=== PATIENT | female | born 1970 | race Caucasian/White ===

== ENCOUNTER 2018-11-13 10:00 | Outpatient (RCR) | payer BC, SELFPAY | END 2018-11-13 13:00 | disposition home or self-care (01) | LOC: PT 10:00 | PROVIDERS: Visit Provider Nurse Practitioner Family | DX: M54.5 Low back pain (principal) | CPT/HCPCS: 97010; 97014; 97033; 97110; 97163; G0283 ==

== ENCOUNTER → 2020-01-19 09:23 | Outpatient (CLI) | payer OTHER, SELFPAY ==
--- NOTE | 2020-01-19 09:26 | MM_ITS ---
PROCEDURE: MM DIG SCREENING MAMM BI W/CAD Digital Breast Tomosynthesis Included CLINICAL INDICATION: SCREENING there is no personal or family history of breast cancer. There has been a previous cyst aspiration left breast with benign findings. COMPARISON: Outside digital mammograms 10/29/2014 TECHNIQUE: Standard CC and MLO images and 3D Tomosynthesis was obtained. R2 CAD reviewed. FINDINGS: Minimal scattered fibroglandular densities are seen throughout both breasts. There is a benign-appearing calcification left breast. There is no suspicious lesion in either breast and no suspicious microcalcifications. There is a possible new benign-appearing nodular density just deep to and superior to the nipple left breast. This is best seen on hunter images and may be a small cyst or fibroadenoma. Recommend the patient return for spot compression views left breast and ultrasound may be necessary as well. IMPRESSION: Fibrofatty parenchyma with possible new density left breast BI-RAD Category: 0 Need Additional Imaging Evaluation FOLLOW-UP: IMM Immediate Follow-up Recommended (A letter has been sent to the patient regarding results of the study.) Dictated by: Dr. Carlos Eduardo Mcneal MD 01/23/2020 10:[address] Carlos Eduardo Mcneal MD in [place] 01/23/2020 10:27
== END ==
PROVIDERS: PCP Nurse Practitioner Family; Visit Provider Nurse Practitioner Family
DX: Z12.31 Encounter for screening mammogram for malignant neoplasm of breast (principal)
CPT/HCPCS: 77063; 77067

== ENCOUNTER 2020-02-07 12:56 | Emergency (ER) | payer OTHER, SELFPAY ==
--- NOTE | 2020-02-07 13:22 | HMH.EDUTC ---
[facility] [place] Clinical Impression: Cystitis Low back pain Qualifiers: Chronicity: acute Back pain laterality: left Sciatica presence: without sciatica Qualified Code(s): M54.5 - Low back pain Pharyngitis Qualifiers: Pharyngitis/tonsillitis etiology: unspecified etiology Qualified Code(s): J02.9 - Acute pharyngitis, unspecified Disposition: Home, Self-Care Condition on Discharge: Good Instructions: Acute Cystitis, DI for Low Back Pain Additional Instructions: Drink plenty of fluids. Continue the medications that you are on. Take the steroids (prednisone) and antibiotics (bactrim) that I prescribed. Follow up with your regular doctor so that she can go over your urine culture results. GO TO THE ER FOR ANY WORSENING SYMPTOMS Prescriptions: Ondansetron [Zofran 4mg ODT] 4 mg PO Q8HP PRN #10 tab.rapdis PRN Reason: Nausea Transmission Status: [facility] Sulfamethoxazole/Trimethoprim [Bactrim DS tablet] 1 each PO BID 7 Days #14 tab Transmission Status: Received by [facility] Fluconazole [Diflucan 150mg tab] 150 mg PO ONCE #1 tab Transmission Status: Received by [facility] predniSONE [Prednisone 20mg Tab] 20 mg PO BID 4 Days #8 tab Transmission Status: Received by [facility] Phenazopyridine HCl [Pyridium 200mg Tablet] 200 pow PO TID #6 tab Transmission Status: Received by [facility] Referrals: Dora Morrison [Primary Care Provider] - Time of Disposition: 13:57 Medical Decision Making - Medical Records Medical records reviewed: No: I reviewed the patient's medical records. - Arley Inquiry Pt receiving controlled substance: No Vital Signs: 02/07/20 13:26 02/07/20 14:04 Temperature 98.0 F 98.0 F Temperature Source Oral Pulse Rate 92 H Pulse Rate [Right Brachial] 92 H Respiratory Rate 20 20 Blood Pressure 118/68 Blood Pressure [Right Arm] 118/68 Blood Pressure Mean [Right Arm] 84 Blood Pressure Source [Right Arm] Automatic Cuff Blood Pressure Position [Right Arm] Sitting 02 Sat by Pulse Oximetry 98 Oxygen Delivery Method Room Air - Lab Data Lab results reviewed: Yes: I reviewed the patient's lab results. Lab Results 02/07/20 13:01: Urine Color Yellow, Urine Appearance Clear, Urine pH 5.0, Ur Specific Tyner 1.020, Urine Protein Negative, Urine Glucose (UA) Negative, Urine Ketones Negative, Urine Blood Negative, Urine Nitrate Negative, Urine Bilirubin Negative, Urine Urobilinogen 0.2, Ur Leukocyte Esterase Negative 02/07/20 13:47: Strep Scn Rapid Clinic Negative Orders (Tests/Meds): ORDERS Category Date Time Status Strep Screen Confirmation Stat Micro 02/07/20 13:47 Received [facility] [place] - General Stated complaint: possible UTI Time Seen by Provider: 02/07/20 13:28 - History of Present Illness Provider Complaint: She c/o low back pain, dysuria, and foul smelling urine. 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] 60 mg PO DAILY 02/07/20 02/07/20 Previous Rx's Medication Instructions Recorded Fluconazole [Diflucan 150mg tab] 150 mg PO ONCE #1 tab 02/07/20 Ondansetron [Zofran 4mg ODT] 4 mg PO Q8HP PRN #10 tab.rapdis 02/07/20 Phenazopyridine HCl [Pyridium 200 pow PO TID #6 tab 02/07/20 200mg Tablet] Sulfamethoxazole/Trimethoprim 1 each PO BID 7 Days #14 tab 02/07/20 [Bactrim DS tablet] predniSONE [Prednisone 20mg 20 mg PO BID 4 Days #8 tab 02/07/20 Tab] Allergies Allergy/AdvReac Type Severity Reaction Status Date / Time codeine Allergy Verified 12/01/18 11:10 hydrocodone Allergy Verified 12/01/18 11:10 promethazine [From Phenergan] Allergy Verified 12/01/18 11:10 [facility] History - Hepatitis A Screen Attestation statement:: This patient has been screened for Hepatitis A risk facto
[2020-02-07 13:26] VITALS: BP 118/68; PULSE 92; RESP 20; TEMP 36.7; O2SAT 98; BMI 33.1
[2020-02-07 13:32] LABS: Apearance,Urine Clear (Clear); Color,Urine Yellow (Yellow)
[2020-02-07 13:33] LABS: Bilirubin,Urine Negative (Negative); Blood, Urine Negative (Negative); Glucose,Urine (UA) Negative (Negative); Ketones,Urine Negative (Negative); Protein,Urine Negative (Negative); UTC Leukocyte Esterase,Urine Negative (Negative); UTC Nitrate,Urine Negative (Negative); Urobilinogen,Urine 0.2 EU/dl (0.2)
[2020-02-07 13:56] LABS: UTC Strep Screen (Rapid) Negative (Negative)
[2020-02-07 14:04] VITALS: BP 118/68; PULSE 92; RESP 20; TEMP 36.7; O2SAT 98
== END 2020-02-07 14:05 | disposition home or self-care (01) ==
PROVIDERS: Emergency Provider Nurse Practitioner Family; PCP Nurse Practitioner Family
DX: N30.00 Acute cystitis without hematuria (principal); M35.00 Sjogren syndrome, unspecified; J02.9 Acute pharyngitis, unspecified; F17.290 Nicotine dependence, other tobacco product, uncomplicated; Z90.49 Acquired absence of other specified parts of digestive tract; Z90.79 Acquired absence of other genital organ(s)
CPT/HCPCS: 81003; 87880; 99202

== ENCOUNTER → 2020-02-19 08:58 | Outpatient (CLI) | payer OTHER, SELFPAY ==
--- NOTE | 2020-02-19 09:16 | MM_ITS ---
PROCEDURE: MM DIG MAMM DX UNILAT LT CAD Digital Breast Tomosynthesis Included CLINICAL INDICATION: ABN MAMM Follow-up abnormal mammogram COMPARISON: AB MAMM SCREEN BILAT DIG PNL from 10/29/2014 MM DIG SCREENING MAMM BI W/CAD from 01/19/2020 US BREAST LT COMPLETE from 02/19/2020 TECHNIQUE: Problem solving views performed of the left breast along left breast FINDINGS: Average fibroglandular tissue. Spot compression view show minimal nodularity in the medial aspect of the left breast just medial and anterior to the clip as seen best on the CC views. This does not appear significantly changed compared to 10/29/2014 and may only represent asymmetric fibroglandular tissue. There are some faint calcifications posterior to the placed clip possibly due to fat necrosis best seen on the CC view. Probably benign findings. Left breast ultrasound: No cystic or solid lesion evident. There is a biopsy clip in the superior left breast IMPRESSION: BI-RAD Category: 3 Probably Benign Finding Short Term Follow-up FOLLOW-UP: 6M 6Month Follow-up (A letter has been sent to the patient regarding results of the study.) Dictated by: Aron Gibbs MD 02/26/2020 13:02 Electronically signed by Aron Gibbs MD in [place] 02/26/2020 13:02
== END ==
PROVIDERS: PCP Nurse Practitioner Family; Visit Provider Nurse Practitioner Family
DX: R92.2 Inconclusive mammogram (principal)
CPT/HCPCS: 76641; 77061; 77065; G0279

== ENCOUNTER 2020-08-04 11:19 | Emergency (ER) | payer MEDICAID, SELFPAY ==
[2020-08-04 11:37] VITALS: BP 110/65; PULSE 70; RESP 18; TEMP 36.7; O2SAT 100; BMI 33.3
[2020-08-04 11:58] VITALS: BP 110/65; PULSE 70; RESP 18; TEMP 36.7; O2SAT 100
--- NOTE | 2020-08-04 11:59 | HMH.EDUTC ---
[facility] [place] Clinical Impression: Exposure to COVID-19 virus, Encounter for laboratory testing for COVID-19 virus Disposition: Home, Self-Care Condition on Discharge: Good Instructions: Preventing the Spread of Coronavirus Discharge Instructions Additional Instructions: *Monitor Temp, Over the counter Motrin or Tylenol as directed/as needed Tylenol every 4 hours and Motrin every 6 hours (as long as your family doctor has told you that you can take it) for fever or pain. and straight to ER if unable to lower temp less than 101.0 after medication given *Warm salt water gargles may help to soothe the throat Eat healthy to help give your body fuel to fight the virus *Throat Lozenges *Warm fluids like tea with honey may help to soothe the throat *Sleep elevated *Humidifier/Vaporizer Follow up IMMEDIATELY for new or worsening symptoms or no Noticeable improvement over the next 48-72 hours. 911 for difficulty breathing or swallowing You was tested for today for COVID19 your test result should be back later this evening, you may call back later this evening to see if your test results are back and the result You was given a handout with instructions for Self Quarantine and Self isolation for while you wait on test results and what to do if they are positive Referrals: Isabel Jarquin APRN [Primary Care Provider] - As needed Forms: Work/School Release Time of Disposition: 12:00 Medical Decision Making - Arley Inquiry Pt receiving controlled substance: No rAley was queried for this patient: No Vital Signs: 08/04/20 11:37 08/04/20 11:58 Temperature 98.1 F 98.1 F Temperature Source Oral Oral Pulse Rate 70 Pulse Rate [Radial] 70 Respiratory Rate 18 18 Blood Pressure 110/65 Blood Pressure [Right Arm] 110/65 Blood Pressure Mean [Right Arm] 80 Blood Pressure Source Automatic Cuff Blood Pressure Source [Right Arm] Automatic Cuff Blood Pressure Position Sitting Blood Pressure Position [Right Arm] Sitting 02 Sat by Pulse Oximetry 100 Oxygen Delivery Method Room Air Room Air Orders (Tests/Meds): ORDERS Category Date Time Status Covid-19 Nasal PCR ([facility]) Routine Lab 08/04/20 11:33 Received [facility] [place] HPI - General Stated complaint: covid test Time Seen by Provider: 08/04/20 11:59 Mode of Arrival: Ambulatory Source of Information: Patient Limitations: No Limitations Description of Symptoms (Recalled from Triage Doc. by RN): COVID EXPOSURE HEENT Symptoms (Recalled from RN notes): No Resp Symptoms (Recalled from RN notes): No Skin Symptoms (Recalled from RN notes): No MS Symptoms (Recalled from RN notes): No Functional Status (Recalled from RN notes): WNL - History of Present Illness Provider Complaint: Patient states that she was recently exposed to around 8 people at [facility] that has tested positive for COVID States that she isnt having any symptoms but is taking Chemo and they recommended that she get tested 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,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] 60 mg PO DAILY 02/07/20 02/07/20 Previous Rx's Medication Instructions Recorded Fluconazole [Diflucan 150mg tab] 150 mg PO ONCE #1 tab 02/07/20 Ondansetron [Zofran 4mg ODT] 4 mg PO Q8HP PRN #10 tab.rapdis 02/07/20 Phenazopyridine HCl [Pyridium 200 pow PO TID #6 tab 02/07/20 200mg Tablet] Sulfamethoxazole/Trimethoprim 1 each PO BID 7 Days #14 tab 02/07/20 [Bactrim DS tablet] predniSONE [Prednisone 20mg 20 mg PO BID 4 Days #8 tab 02/07/20 Tab] Allergies Allergy/AdvReac Type Severity Reaction Status Date / Time codeine Allergy Verified 12/01/18 11:10 hydrocodone Allergy Verified 12/01/18 11:10 promethazine [From Phenergan] Allergy Verified 12/01/18 11:10 - Worker's Comp Is this a Worker's Comp case?: No [facility] History - Hepatitis A Screen Drug
== END 2020-08-04 12:07 | disposition home or self-care (01) ==
PROVIDERS: Emergency Provider Nurse Practitioner; PCP Nurse Practitioner Family
DX: U07.1 COVID-19 (principal); Z88.5 Allergy status to narcotic agent
CPT/HCPCS: 99201; U0003

== ENCOUNTER 2020-12-27 09:05 | Outpatient (CLI) | payer MEDICAID, SELFPAY ==
[2020-12-27 09:05] VITALS: BP 107/65; PULSE 68; RESP 20; TEMP 36.9; O2SAT 95
[2020-12-27 10:00] VITALS: BP 129/55; PULSE 61; RESP 20; TEMP 36.9; O2SAT 95
== END 2020-12-27 10:00 | disposition home or self-care (01) ==
LOC: INF 09:05
DX: D50.9 Iron deficiency anemia, unspecified (principal)
CPT/HCPCS: 96365; J1439

== ENCOUNTER 2021-01-03 09:32 | Outpatient (CLI) | payer MEDICAID, SELFPAY ==
[2021-01-03 09:55] VITALS: BP 100/59; PULSE 55; RESP 20; TEMP 36.9; O2SAT 95
[2021-01-03 11:10] VITALS: BP 102/52; PULSE 58; RESP 20; TEMP 36.9; O2SAT 95
== END 2021-01-03 11:10 | disposition home or self-care (01) ==
LOC: INF 09:32
DX: D50.9 Iron deficiency anemia, unspecified (principal)
CPT/HCPCS: 96365; J1439

== ENCOUNTER 2021-07-14 08:19 | Outpatient (CLI) | payer MEDICAID, SELFPAY ==
[2021-07-14] VITALS (8 sets, daily range): BP systolic 113–131; BP diastolic 65–92; PULSE 52–64; RESP 16; TEMP 36.5–36.9; O2SAT 97–100
== END 2021-07-14 11:10 | disposition home or self-care (01) ==
PROVIDERS: PCP Nurse Practitioner Family; Visit Provider Nurse Practitioner Family
DX: U07.1 COVID-19 (principal)
CPT/HCPCS: 96365

== ENCOUNTER → 2021-07-24 08:03 | Outpatient (CLI) | payer MEDICAID, SELFPAY ==
--- NOTE | 2021-07-24 08:07 | MR_ITS ---
PROCEDURE: MR LUMBAR SPINE WO CON CLINICAL INDICATION: LOW BACK PAIN COMPARISON: No exams were available for comparison TECHNIQUE: Standard multiplanar multiecho sequences are performed without contrast. 3-D MIP and myelographic images are also rendered and reviewed FINDINGS: The spinal cord ends at the L1-L2 level. T11-T12: Mild degenerative disc disease with anterior bulging disc. 8 mm T2 hyperintensity within the T12 vertebral body suggesting a small hemangioma T12-L1: Unremarkable. L1-L2: Unremarkable. L2-L3: Unremarkable. L3-L4: Mild facet and ligamentum hypertrophic change. L4-5: Severe degenerative disc disease with 7 mm anterolisthesis of L4 with bulging disc along with facet and ligamentum hypertrophy. The bulging disc is eccentric toward the left. There is canal stenosis of 10 mm with severe bilateral foraminal narrowing left greater than right and bilateral lateral recess narrowing left greater than right. There are type 1 endplate changes at L4-5. L5-S1: Facet hypertrophic changes with mild bilateral foraminal narrowing slightly greater on the left with a small annular fissure in the left lateral aspect of the disc. IMPRESSION: Multilevel lumbar spondylosis. Please see above for detailed description at each level. This is most severe at L4-5. No extruded herniated disc evident. Dictated by: Aron Gibbs MD 07/26/2021 09:26 Aron Gibbs MD in [place] 07/26/2021 09:26
--- NOTE | 2021-07-24 08:13 | XR_ITS ---
PROCEDURE: XR ORBIT BILATERAL MIN 4V CLINICAL INDICATION: RULE OUT METAL FOREIGN BODY FOR MRI COMPARISON: No exams were available for comparison TECHNIQUE: AP views are obtained of the orbits with the patient looking up and down. FINDINGS: No radio opaque foreign bodies evident. IMPRESSION: No radio opaque orbital foreign body identified. Dictated by: Aron Gibbs MD 07/24/2021 08:47 Aron Gibbs MD in [place] 07/24/2021 08:47
== END ==
PROVIDERS: PCP Nurse Practitioner Family; Visit Provider Nurse Practitioner Family
DX: H05.53 Retained (old) foreign body following penetrating wound of bilateral orbits (principal); M54.50 Low back pain, unspecified
CPT/HCPCS: 70200; 72148; 76376

== ENCOUNTER → 2021-12-21 09:08 | Outpatient (CLI) | payer MEDICAID, SELFPAY ==
[2021-12-21 14:04] LABS: Basophils # 0.1 K/mm3 (0-0.2); Basophils % 1.1 % (0.1-2.0); Eosinophils % 1.1 % (0.1-12.0); Hematocrit 41.4 % (37.0-47.0); Hemoglobin 13.1 g/dL (12.2-16.2); Lymphocytes # 1.3 K/mm3 (0.7-4.5); Lymphocytes % 31.6 % (10-50); Mean Corpuscular HGB Conc 31.7 g/dL (31.8-35.4); Mean Corpuscular Hemoglobin 31.2 pg (27.0-31.2); Mean Corpuscular Volume 98.3 fl (81-99); Mean Platelet Volume 9.7 fl (7.4-10.4); Monocytes # 0.3 K/mm3 (0.1-1.0); Monocytes % 8.2 % (1.7-9.3); Neutrophils # 2.4 K/mm3 (1.8-7.8); Neutrophils % 57.9 % (37.0-80.0); Platelet Count 214 K/mm3 (142-424); Red Blood Count 4.21 M/mm3 (4.20-5.40); Red Cell Distribution Width 13.5 % (11.5-17.5); White Blood Count 4.1 K/mm3 (4.8-10.8)
[2021-12-21 14:07] LABS: Alanine Aminotransferase 19 U/L (12-78); Albumin Level 3.8 g/dl (3.5-5.0); Albumin/Globulin Ratio 1.7 (1.1-1.8); Alkaline Phosphatase 77 U/L (38-126); Aspartate Amino Transferase 29 U/L (14-36); Bilirubin,Total 0.7 mg/dl (0.2-1.3); Blood Urea Nitrogen 14 mg/dl (7-17); Calcium 8.7 mg/dl (8.4-10.2); Carbon Dioxide 31 mmol/L (22.0-30.0); Chloride 104 mmol/L (98-107); Estimated Glomerular Filt Rate 88 ml/min (>60); GFR (African American) 106 ML/MIN (>60); Globulin 2.2 g/dL (1.3-3.2); Glucose 88 mg/dl (74-100); Sodium 138 mmol/L (136-145)
[2021-12-21 15:26] LABS: Erythrocyte Sedimentation Rate 13 mm/hr (0-30)
== END ==
PROVIDERS: Visit Provider Nurse Practitioner
DX: Z79.899 Other long term (current) drug therapy (principal)
CPT/HCPCS: 36415; 80053; 85025; 85651

== ENCOUNTER 2021-12-25 09:00 | Outpatient (RCR) | payer MEDICAID, SELFPAY | END 2022-02-07 10:14 | disposition home or self-care (01) | LOC: PT.CARL 09:00 | PROVIDERS: PCP Nurse Practitioner Family; Visit Provider Nurse Practitioner Family | DX: M48.07 Spinal stenosis, lumbosacral region (principal) | CPT/HCPCS: 97010; 97014; 97110; 97140; 97163; G0283 ==

== ENCOUNTER 2022-03-10 09:54 | Emergency (ER) | payer MEDICAID, SELFPAY ==
[2022-03-10 10:00] VITALS: BP 124/64; PULSE 61; RESP 18; TEMP 37.1; O2SAT 98; BMI 31.4
[2022-03-10 10:28] LABS: Strep Scrn Group A (Rapid) Negative (Negative)
--- NOTE | 2022-03-10 10:29 | HMH.EDUTC ---
[facility] Disposition Clinical Impression: Upper respiratory infection Qualifiers: URI type: unspecified viral URI Qualified Code(s): J06.9 - Acute upper respiratory infection, unspecified Disposition: Home, Self-Care Condition on Discharge: Good Instructions: DI for Viral Upper Respiratory Infection -- Adult Prescriptions: Brompheniramine/Pseudoephed/Dm [Bromfed DM Cough Syrup 5mL] 5 ml PO Q4HP PRN 10 Days #180 ml PRN Reason: Cough Transmission Status: Pending to [facility] predniSONE [Prednisone 20mg Tab] 20 mg PO BID 5 Days #10 tab Transmission Status: Pending to [facility] Referrals: Dora Morrison [Primary Care Provider] - Time of Disposition: 10:41 Medical Decision Making - Arley Inquiry Pt receiving controlled substance: No Vital Signs: 03/10/22 10:00 Temperature 98.7 F Temperature Source Oral Pulse Rate [Right Brachial] 61 Respiratory Rate 18 Blood Pressure [Right Arm] 124/64 Blood Pressure Mean [Right Arm] 84 Blood Pressure Source [Right Arm] Automatic Cuff Blood Pressure Position [Right Arm] Sitting 02 Sat by Pulse Oximetry 98 Oxygen Delivery Method Room Air - Lab Data Lab results reviewed: Yes: I reviewed the patient's lab results. Lab Results 03/10/22 10:07: Group A Strep Rapid Negative Orders (Tests/Meds): ORDERS Category Date Time Status Strep Screen Confirmation Stat Micro 03/10/22 10:07 Received [facility] HPI - General Stated complaint: sinus congestion, bodyaches, CARMONA, cough, nausea Time Seen by Provider: 03/10/22 10:31 Mode of Arrival: Ambulatory Source of Information: Patient Limitations: No Limitations Description of Symptoms (Recalled from Triage Doc. by RN): PATIENT C/O HOARSENESS, CONGESTION, AND SCRATCHY THROAT X 2 DAYS. HER GRANDSON RECENTLY DIAGNOSED WITH STREP HEENT Symptoms (Recalled from RN notes): Yes Resp Symptoms (Recalled from RN notes): No Skin Symptoms (Recalled from RN notes): No MS Symptoms (Recalled from RN notes): No Functional Status (Recalled from RN notes): WNL - History of Present Illness Provider Complaint: Hoarseness, congestion, cough X 2-3 days. Cough is productive. No fever. Losing voice. Grandson has strep throat. Onset (ago): day(s) (3) Location: chest Relieving factors: none Exacerbating factors: none Associated symptoms: cough Treatments prior to arrival: none - Related Data Home Medications Medication Instructions Recorded Confirmed Hydroxychloroquine Sulfate 200 mg PO DAILY 02/07/20 03/10/22 [Plaquenil 200mg tablet] Fluticasone Propionate [Flonase 2 spr NS DAILY 03/10/22 03/10/22 50mcg nasal spray 16gm] Pregabalin [Lyrica 100mg Cap] 100 mg PO DAILY 03/10/22 03/10/22 Previous Rx's Medication Instructions Recorded Brompheniramine/Pseudoephed/Dm 5 ml PO Q4HP PRN 10 Days #180 ml 03/10/22 [Bromfed DM Cough Syrup 5mL] predniSONE [Prednisone 20mg 20 mg PO BID 5 Days #10 tab 03/10/22 Tab] Allergies Allergy/AdvReac Type Severity Reaction Status Date / Time codeine Allergy Verified 12/01/18 11:10 hydrocodone Allergy Verified 12/01/18 11:10 promethazine [From Phenergan] Allergy Verified 12/01/18 11:10 Sulfa (Sulfonamide Allergy Verified 03/10/22 10:12 Antibiotics) sulfate ion Allergy Verified 03/10/22 10:12 - Worker's Comp Is this a Worker's Comp case?: No [facility] History - Hepatitis A Screen Attestation statement:: This patient has been screened for Hepatitis A risk factors. I have reviewed the patient's past medical history: Yes - Social History Smoking Status: Current some day smoker Tobacco Type: e-cigarettes Alcohol Intake: never Occupational Status: employed Housing: house Household Members: spouse ROS Obtained: Yes All systems reviewed & no additional complaints - Constitutional Constitutional: Reports fatigue, Reports headache(s) - ENT Ears, Nose, Mouth, and Throat: Reports nasal discharge, Reports sinus pain, Reports sore throat
[2022-03-10 10:45] VITALS: BP 124/64; PULSE 61; RESP 18; TEMP 37.1; O2SAT 98
== END 2022-03-10 10:48 | disposition home or self-care (01) ==
PROVIDERS: Emergency Provider Physician Assistant; PCP Nurse Practitioner Family
DX: J06.9 Acute upper respiratory infection, unspecified (principal); F17.290 Nicotine dependence, other tobacco product, uncomplicated
CPT/HCPCS: 87430; 99212; G0463

== ENCOUNTER → 2022-08-28 14:18 | Outpatient (POV) | payer MEDICAID, SELFPAY | PROVIDERS: Visit Provider Dermatology | DX: Z00.00 Encounter for general adult medical examination without abnormal findings (principal) ==

== ENCOUNTER → 2022-11-02 10:53 | Outpatient (CLI) | payer OTHER, MEDICAID, SELFPAY ==
[2022-11-02 11:34] LABS: Basophils # 0.1 K/mm3 (0-0.2); Basophils % 2.1 % (0.1-2.0); Eosinophils # 0.1 K/mm3 (0.0-0.4); Eosinophils % 1.8 % (0.1-12.0); Hematocrit 43.3 % (37.0-47.0); Hemoglobin 14.5 g/dL (12.2-16.2); Lymphocytes # 1.5 K/mm3 (0.7-4.5); Lymphocytes % 29.6 % (10-50); Mean Corpuscular HGB Conc 33.5 g/dL (31.8-35.4); Mean Corpuscular Hemoglobin 32.5 pg (27.0-31.2); Mean Corpuscular Volume 97.2 fl (81-99); Mean Platelet Volume 8.7 fl (7.4-10.4); Monocytes # 0.4 K/mm3 (0.1-1.0); Monocytes % 8.1 % (1.7-9.3); Neutrophils # 2.9 K/mm3 (1.8-7.8); Neutrophils % 58.4 % (37.0-80.0); Platelet Count 245 K/mm3 (142-424); Red Blood Count 4.45 M/mm3 (4.20-5.40)
[2022-11-02 12:05] LABS: Iron 119 ug/dL (37-170)
[2022-11-02 12:14] LABS: Total Iron Binding Capacity 379 ug/dL (265-497)
[2022-11-02 12:37] LABS: Thyroid Stimulating Hormone 1.48 uIU/mL (0.465-4.68)
[2022-11-02 12:41] LABS: Ferritin 84.6 ng/ml (11.1-264)
[2022-11-02 13:16] LABS: Vitamin B12 245 pg/mL (239-931)
[2022-11-02 13:27] LABS: Folate 7.19 ng/mL
== END ==
PROVIDERS: PCP Nurse Practitioner Family; Visit Provider Obstetrics & Gynecology
DX: R53.83 Other fatigue (principal)
CPT/HCPCS: 36415; 82607; 82728; 82746; 83540; 83550; 84443; 85025

== ENCOUNTER 2023-06-09 11:21 | Emergency (ER) | payer OTHER, SELFPAY ==
[2023-06-09 11:22] VITALS: BP 148/83; PULSE 60; RESP 18; TEMP 36.8; O2SAT 100; BMI 32.5
--- NOTE | 2023-06-09 11:39 | EXP.UTC ---
Discharge Plan Disposition Patient Disposition: Home, Self-Care Condition: Good Prescriptions Prescriptions: New clindamycin HCl 300 mg capsule 300 mg PO Q8H Qty: 30 0RF No Action mecobalamin (vitamin B12) 1,000 mcg tablet,chewable 1,000 mcg PO DAILY pregabalin [Lyrica] 75 mg capsule 75 mg PO HS hydroxychloroquine 200 MG tablet 200 mg PO DAILY Referrals Follow up/Referrals: Dora Morrison [Primary Care Provider] - See instructions Activity Restrictions/Add. Instructions Additional Instructions/Restrictions: Take tylenol or ibuprofen for pain or fever. Take the medications as directed. Follow up with your regular doctor. GO TO THE ER FOR ANY WORSENING SYMPTOMS Clinical Impressions Clinical Impression: Cellulitis of left leg, Left leg pain, Left leg swelling Instructions Patient Instructions: Cellulitis, Clindamycin Discharge ED Provider: Grant Mancuso [facility] General Stated complaint: Heat in Left leg Time Seen by Provider: 06/09/23 11:39 History of Present Illness Provider Complaint: She states that for the past 2 days she has had left lower leg swelling, redness or her calf area, and pain in the front of her calf. She denies any injury. She denies any chest pain or shortness of breath. She denies any personal or family history of blood clots. Related Data Home Medications Medication Instructions Recorded Confirmed hydroxychloroquine 200 mg tablet 200 mg PO DAILY Arthritis 02/07/20 12/07/22 pregabalin 75 mg capsule (Lyrica) 75 mg PO HS 11/02/22 12/07/22 mecobalamin (vitamin B12) 1,000 1,000 mcg PO DAILY 12/07/22 12/07/22 mcg chewable tablet Previous Rx's Medication Instructions Recorded clindamycin HCl 300 mg capsule 300 mg PO Q8H #30 caps 06/09/23 Allergies Allergy/AdvReac Type Severity Reaction Status Date / Time codeine Allergy Verified 12/07/22 10:57 hydrocodone Allergy Verified 12/07/22 10:57 promethazine [From Phenergan] Allergy Verified 12/07/22 10:57 Sulfa (Sulfonamide Allergy Verified 12/07/22 10:57 Antibiotics) sulfate ion Allergy Verified 12/07/22 10:57 [facility] Disclaimer: The information contained in this section may have been updated after the patient was seen, as this information can be updated by other users. 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 Anemia Anxiety Depression Fatigue Hx of non anemic vitamin B12 deficiency Loss of energy Mood changes Surgical History History of neck surgery History of total abdominal hysterectomy Social History Smoking Status: Current some day smoker tobacco type: e-cigarettes alcohol intake: never current occupational status: employed Travel in the last 8 weeks: None household members: spouse housing: house current occupational exposures/hazards: Yes ROS Obtained: Yes All systems reviewed & no additional complaints except as documented Constitutional Constitutional: Denies chills and Denies fever(s) Eyes Eyes: Denies eye discharge ENT Ears, Nose, Mouth, and Throat: Denies dizziness, Denies otalgia and Denies sore throat Cardiovascular Cardiovascular: Denies chest pain Respiratory Respiratory: Denies shortness of breath, Denies chest congestion, Denies cough, Denies stridor and Denies wheezing Gastrointestinal Gastrointestingal: Denies nausea or vomiting Musculoskeletal Musculoskeletal: Reports as per HPI Integumentary/Breasts Skin/Breast: Reports as per HPI Neurologic Neurologic: Denies dizziness and Denies paresthesias Allergic/Immunologic Allergic/Immunologic: Denies wheezing Physical Exam General General appearance: alert and in no apparent distress Head Head exam: atraumatic, normocephalic and normal inspection Eye Eye exam: Present normal appearance, PERRL and EOMI ENT ENT exam: Present normal exam, n
--- NOTE | 2023-06-09 11:53 | CA_ITS ---
FINAL REPORT TECHNIQUE: Ultrasound images of the deep venous system were obtained from the left groin to the calf veins. CLINICAL HISTORY: left lower leg swelling, pain, redness, and warmth,nki COMPARISON: None FINDINGS: The deep venous system is normally compressible. Normal flow is identified. IMPRESSION: No evidence of left lower extremity DVT. Reviewed, Interpreted and Dictated by Francois Forrest MD Transcribed by Ailyn López Authenticated and [facility]
[2023-06-09 13:27] VITALS: BP 148/83; PULSE 60; RESP 18; TEMP 36.8; O2SAT 100
== END 2023-06-09 13:28 | disposition home or self-care (01) ==
PROVIDERS: Emergency Provider Nurse Practitioner Family; PCP Nurse Practitioner Family
DX: L03.116 Cellulitis of left lower limb (principal); M79.605 Pain in left leg; R22.42 Localized swelling, mass and lump, left lower limb; F17.290 Nicotine dependence, other tobacco product, uncomplicated; F41.9 Anxiety disorder, unspecified; F32.A Depression, unspecified
CPT/HCPCS: 93971; 99212; 99214; G0463

== ENCOUNTER → 2023-07-09 23:47 | Outpatient (CLI) | payer OTHER, SELFPAY | LOC: LAB.DROPOF 23:47 | PROVIDERS: PCP Nurse Practitioner Family; Visit Provider Nurse Practitioner Family | DX: R39.9 Unspecified symptoms and signs involving the genitourinary system (principal); B96.89 Other specified bacterial agents as the cause of diseases classified elsewhere | CPT/HCPCS: 87086; 87088; 87186 ==

== ENCOUNTER 2024-04-25 15:39 | Emergency (ER) | payer OTHER, SELFPAY ==
[2024-04-25 16:00] VITALS: BP 115/59; PULSE 60; RESP 19; TEMP 36.9; O2SAT 97; BMI 28.0
--- NOTE | 2024-04-25 16:45 | ED_ITS ---
Discharge Plan Disposition Patient Disposition: Still a Patient Prescriptions Prescriptions: No Action cyclobenzaprine 10 mg tablet 10 mg PO DAILY prednisone 20 mg tablet 20 mg PO DAILY pregabalin 75 mg capsule 75 mg PO DAILY Referrals Follow up/Referrals: Dora Morrison [Primary Care Provider] - See instructions [facility] [facility] [place] General Stated complaint: low back, abd pain Mode of Arrival: Ambulatory Source of Information: Patient Limitations: No Limitations Time Seen by Provider: 04/25/24 16:45 Description of Symptoms (Recalled from Triage Doc. by RN): PATIENT C/O RIGHT LOWER BACK AND RLQ PAIN, CHILLS AND NAUSEA THAT STARTED YESTERDAY. HEENT Symptoms (Recalled from RN notes): No Resp Symptoms (Recalled from RN notes): No Skin Symptoms (Recalled from RN notes): No MS Symptoms (Recalled from RN notes): No Functional Status (Recalled from RN notes): WNL History of Present Illness Provider Complaint: 53 yr old female presents for c/o low back, rt lower abd pain. was seen by pcp yesterday and told she did not have uti. pt states she thinks its her appendix and wants it checked out. Related Data Home Medications Medication Instructions Recorded Confirmed cyclobenzaprine 10 mg tablet 10 mg PO DAILY 04/25/24 04/25/24 prednisone 20 mg tablet 20 mg PO DAILY 04/25/24 04/25/24 pregabalin 75 mg capsule 75 mg PO DAILY 04/25/24 04/25/24 Allergies Allergy/AdvReac Type Severity Reaction Status Date / Time codeine Allergy Verified 07/19/23 08:33 hydrocodone Allergy Verified 07/19/23 08:33 promethazine [From Phenergan] Allergy Verified 07/19/23 08:33 Sulfa (Sulfonamide Allergy Verified 07/19/23 08:33 Antibiotics) sulfate ion Allergy Verified 07/19/23 08:33 Worker's Comp Is this a Worker's Comp case?: No [facility] Disclaimer: The information contained in this section may have been updated after the patient was seen, as this information can be updated by other users. 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) Smoking Status: Current some day smoker tobacco type: e-cigarettes alcohol intake: never current occupational status: employed Travel in the last 8 weeks: None household members: spouse housing: house current occupational exposures/hazards: Yes ROS Obtained: Yes All systems reviewed & no additional complaints except as documented Constitutional Constitutional: Reports system reviewed and no additional complaints, except as documented Eyes Eyes: Reports system reviewed and no additional complaints, except as documented ENT Ears, Nose, Mouth, and Throat: Reports system reviewed and no additional complaints, except as documented Cardiovascular Cardiovascular: Reports system reviewed and no additional complaints, except as documented Respiratory Respiratory: Reports system reviewed and no additional complaints, except as documented Gastrointestinal Gastrointestingal: Reports system reviewed and no additional complaints, except as documented, as per HPI, abdominal pain and nausea Genitourinary Female Genitourinary: Reports system reviewed and no additional complaints, except as documented and Reports as per HPI Musculoskeletal Musculoskeletal: Reports system reviewed and no additional complaints, except as documented Integumentary/Breasts Skin/Breast: Reports system reviewed and no additional complaints, except as documented Neurologic Neurologic: Reports system reviewed and no additional complaints, except as documented Endocrine Endocrine: Reports system reviewed and no additional complaints, except as documented Hematologic/Lymphatic Henatologic/Lymphatic: Reports system reviewed and no additional complaints, except as documented Allergic/Immunologic Allergic/Immunologic: Reports system reviewed and no additional complaints, except as documented Physical Exam General General appearance: alert and in no apparent distress Eye Eye exam: Present normal appearance Respiratory Respiratory exam: Present normal lung sounds bilaterally Cardiovascular Cardiovascular exam: Present regular rate and normal rhythm Abdominal Exam Abdominal exam: Present soft, tenderness, rebound and normal bowel sounds Abdominal tenderness: Present RLQ and moderate Neurological Exam Neurological exam: Present alert and oriented X3 Skin Skin exam: Present warm and intact Medical Decision Making Medical Records Medical records reviewed: Yes I reviewed the patient's medical records. Arley Inquiry Pt receiving controlled substance: No Arley was queried for this patient: No Vital Signs: 04/25/24 16:00 Temperature 98.4 F Temperature Source Oral Pulse Rate [Left Brachial] 60 Respiratory Rate 19 Blood Pressure [Left Arm] 115/59 L Blood Pressure Mean [Left Arm] 77 Blood Pressure Source [Left Arm] Automatic Cuff Blood Pressure Position [Left Arm] Sitting 02 Sat by Pulse Oximetry 97 Oxygen Delivery Method Room Air Lab Data Lab results reviewed: Yes I reviewed the patient's lab results.
--- NOTE | 2024-04-25 16:51 | PC.NURSE ---
PATIENT SENT TO ER PER Anna DOWNEY APRN. REPORT GIVEN TO DR. MENDEZ BY Anna DOWNEY APRN. PATIENT AMBULATED TO ER WITH [facility] STAFF, REFUSED WHEELCHAIR TRANSPORT
[2024-04-25 16:54] VITALS: BP 140/82; PULSE 68; RESP 16; TEMP 36.6; O2SAT 98; BMI 27.9
--- NOTE | 2024-04-25 16:55 | PC.NURSE ---
DR MENDEZ AT BEDSIDE
[2024-04-25 17:01] VITALS: BP 124/76
--- NOTE | 2024-04-25 17:02 | CT_ITS ---
PROCEDURE INFORMATION: Exam: CT Abdomen And Pelvis With Contrast Exam date and time: 04/25/2024 5:27 PM Age: 53 years old Clinical indication: Abdominal pain; Additional info: Rlq abd pain/nausea TECHNIQUE: Imaging protocol: Computed tomography of the abdomen and pelvis with contrast. Radiation optimization: All CT scans at this facility use at least one of these dose optimization techniques: automated exposure control; mA and/or kV adjustment per patient size (includes targeted exams where dose is matched to clinical indication); or iterative reconstruction. Contrast material: ISOVUE; Contrast volume: 75 ml; Contrast route: IV; COMPARISON: MR LUMBAR SPINE WO CON 07/24/2021 8:51 AM FINDINGS: Liver: Normal. No mass. Gallbladder and biliary ducts: Gallbladder is surgically absent. No significant biliary ductal dilation. Pancreas: Normal. No ductal dilation. Spleen: Normal. No splenomegaly. Adrenal glands: Normal. No mass. Kidneys and ureters: Normal. No hydronephrosis. Stomach and bowel: Evidence of prior gastric surgery noted. No bowel wall thickening or evidence of bowel obstruction. Appendix: The appendix is visualized and appears normal. Intraperitoneal space: Unremarkable. No free air. No significant fluid collection. Vasculature: Unremarkable. No abdominal aortic aneurysm. Lymph nodes: Unremarkable. No enlarged lymph nodes. Urinary bladder: Unremarkable as visualized. Reproductive: Uterus is surgically absent. No adnexal abnormality. Bones/joints: Grade 1 anterolisthesis of L4 with severe degenerative disc changes at the L4-L5 disc level. Mild facet arthropathy at L4-L5. Moderate degenerative disc changes in the lower thoracic spine. No vertebral body compression or acute fracture. Soft tissues: Unremarkable. IMPRESSION: No acute abnormality evident. Chronic findings as noted.
--- NOTE | 2024-04-25 17:03 | HMH.EDGENADL ---
Discharge Plan Disposition Patient Disposition: Home, Self-Care Condition: Good Prescriptions Prescriptions: New nitrofurantoin monohyd/m-cryst [Macrobid] 100 mg capsule 100 mg PO BID 5 Days Qty: 10 0RF Rx Instructions: must administer with a meal/food ondansetron 4 mg tablet,disintegrating 4 mg PO Q8H PRN (Reason: nausea and vomiting) 4 Days Qty: 12 0RF phenazopyridine [Pyridium] 200 mg tablet 200 mg PO Q8H PRN (Reason: pain) Qty: 6 0RF No Action cyclobenzaprine 10 mg tablet 10 mg PO DAILY prednisone 20 mg tablet 20 mg PO DAILY pregabalin 75 mg capsule 75 mg PO DAILY Referrals Follow up/Referrals: Dora Morrison [Primary Care Provider] - See instructions Activity Restrictions/Add. Instructions Additional Instructions/Restrictions: You were evaluated in the emergency department today. At this time, your urinalysis is borderline for infection. CT scan and labs are otherwise reassuring. Please picker operator your prescription for antibiotic at the pharmacy and take as prescribed. 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 Follow-up closely with your primary care provider. Return to the emergency department for new or worsening symptoms, such as significant worsening in pain, inability to tolerate oral intake, or other concerns. Clinical Impressions Clinical Impression: Abdominal pain, UTI (urinary tract infection) Stand Alone Forms Stand Alone Forms: Work/School Release Instructions Patient Instructions: DI for Urinary Tract Infection (UTI), DI for Acute Abdominal Pain Discharge ED Provider: Shireen Murphy General Adult HPI General Chief complaint: Abdominal Pain Stated complaint: low back, abd pain Time Seen by Provider: 04/25/24 16:45 Mode of Arrival: Ambulatory Source of Information: Patient Limitations: No Limitations Description of Symptoms (Recalled from ER Triage Doc. by RN): PATIENT C/O RIGHT LOWER BACK AND RLQ PAIN, CHILLS AND NAUSEA THAT STARTED YESTERDAY. Sent from [facility] per patient request stating she just wants to be checked for appendicitis. History of Present Illness HPI narrative: This patient is a 53-year-old female with a history of prior total abdominal hysterectomy, cholecystectomy, and depression/anxiety presenting to the emergency department for evaluation with concern for right lower quadrant abdominal pain, chills, and nausea. Patient reports that she been having some mild right lower quadrant pain from a few days, but got acutely worse yesterday. She is also had some dysuria for 1 day. She saw her doctor yesterday and had labs drawn which were reassuring. Given that the pain continued into today and she has not been able to eat or drink very much with significant nausea, she presented to [facility] for evaluation. At [facility], she had a urinalysis that was reportedly concerning for leukocyte esterase per the provider after interactive discussion. Patient requested to be seen over here with concern that she could have appendicitis. No other concerns noted at this time. Patient reports no significant changes in bowel movements. Related Data Home Medications Medication Instructions Recorded Confirmed cyclobenzaprine 10 mg tablet 10 mg PO DAILY 04/25/24 04/25/24 prednisone 20 mg tablet 20 mg PO DAILY 04/25/24 04/25/24 pregabalin 75 mg capsule 75 mg PO DAILY 04/25/24 04/25/24 Previous Rx's Medication Instructions Recorded nitrofurantoin 100 mg PO BID 5 days #10 caps 04/25/24 monohydrate/macrocrystals 100 mg capsule (Macrobid) ondansetron 4 mg disintegrating 4 mg PO Q8H PRN nausea and 04/25/24 tablet vomiting 4 days #12 tabs phenazopyridine 200 mg tablet 200 mg PO Q8H PRN pain 6 doses #6 04/25/24 (Pyridium) tabs Allergies Allergy/AdvReac Type Severity Reaction Status Date / Time codeine Allergy Verified 07/19/23 08:33 hydrocodone Allergy Verified 07/19/23 08:33 promethazine [From Phenergan] Allergy Verified 07/19/23 08:33 Sulfa (Sulfonamide Allergy Verified 07/19/23 08:33 Antibiotics) sulfate ion Allergy Verified 07/19/23 08:33 [facility] Disclaimer: The information contained in this section may have been updated after the patient was seen, as this information can be updated by other users. 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 Urinary tract infection symptoms Hx of non anemic vitamin B12 deficiency Mood changes Loss of energy Fatigue Depression Anemia Anxiety Surgical History History of total abdominal hysterectomy History of neck surgery Social History Smoking Status: Unknown if ever smoked alcohol intake: never current occupational status: employed Travel in the last 8 weeks: None household members: spouse housing: house current occupational exposures/hazards: Yes ROS Obtained: Yes All systems reviewed & no additional complaints except as documented Physical Exam General General appearance: alert and in no apparent distress Head Head exam: atraumatic and normocephalic Eye Eye exam: Present normal appearance, PERRL and EOMI ENT ENT exam: Present normal exam, normal oropharynx, mucous membranes moist and normal external ear exam Neck Neck exam: Present normal inspection, full ROM and trachea midline; Absent tenderness Chest Chest inspection: Present normal inspection and symmetric chest wall rise; Absent tenderness Respiratory Respiratory exam: Present normal lung sounds bilaterally; Absent respiratory distress, wheezes, stridor or accessory muscle use Cardiovascular Cardiovascular exam: Present regular rate and normal rhythm Abdominal Exam Abdominal exam: Present soft and tenderness (Right lower quadrant); Absent distention or guarding Extremities Exam Extremities exam: Present normal inspection, full ROM and normal capillary refill; Absent tenderness or edema Back Exam Back exam: Present normal inspection and full ROM; Absent tenderness Neurological Exam Neurological exam: Present alert, oriented X3, CN II-XII intact and normal gait; Absent motor sensory deficit Psychiatric Psychiatric exam: Present normal affect and normal mood Skin Skin exam: Present warm and dry Medical Decision Making Medical Records Medical records reviewed: Yes I reviewed the patient's medical records. Arley Inquiry Pt receiving controlled substance: No Vital Signs: 04/25/24 16:00 04/25/24 16:54 04/25/24 17:01 Temperature 98.4 F 97.8 F Temperature Source Oral Oral Pulse Rate Pulse Rate [Left Brachial] 60 68 Respiratory Rate 19 16 Blood Pressure 124/76 Blood Pressure [Left Arm] 115/59 L 140/82 Blood Pressure Mean 92 Blood Pressure Mean [Left Arm] 77 101 Blood Pressure Source Blood Pressure Source [Left Arm] Automatic Cuff Automatic Cuff Blood Pressure Position [Left Arm] Sitting Sitting 02 Sat by Pulse Oximetry 97 98 Oxygen Delivery Method Room Air Room Air 04/25/24 17:31 04/25/24 18:50 Temperature 97.8 F Temperature Source Oral Pulse Rate 60 Pulse Rate [Left Brachial] Respiratory Rate 16 Blood Pressure 117/61 116/68 Blood Pressure [Left Arm] Blood Pressure Mean 82 Blood Pressure Mean [Left Arm] Blood Pressure Source Automatic Cuff Blood Pressure Source [Left Arm] Blood Pressure Position [Left Arm] 02 Sat by Pulse Oximetry Oxygen Delivery Method Room Air Lab Data Lab results reviewed: Yes I reviewed the patient's lab results. Lab Results 04/25/24 16:08: Urine Color Yellow, Urine Appearance Clear, Urine pH 7.0, Ur Specific Arabi 1.020, Urine Protein Negative, Urine Glucose (UA) Negative, Urine Ketones Negative, Urine Blood Negative, Urine Nitrate Negative, Urine Bilirubin Negative, Urine Urobilinogen 1.0, Ur Leukocyte Esterase Trace, Urine RBC None, Urine WBC Occasional, Ur Squamous Epith Cells 3-5, Urine Bacteria Trace 04/25/24 17:10: WBC 5.1, RBC 4.44, Hgb 14.0, Hct 42.6, MCV 95.9, MCH 31.4 H, MCHC 32.8, RDW 13.7, Plt Count 212, MPV 8.6, Neut % (Auto) 59.3, Lymph % (Auto) 31.8, Pike % (Auto) 6.8, Eos % (Auto) 1.3, Baso % (Auto) 0.8, Neut # (Auto) 3.0, Lymph # (Auto) 1.6, Pike # (Auto) 0.4, Eos # (Auto) 0.1, Baso # (Auto) 0.0, Sodium 138, Potassium 4.5, Chloride 107, Carbon Dioxide 31 H, Anion Gap 4.5 L, BUN 15, Creatinine 0.80, Estimated Creat Clear 93, Estimated GFR 74, Est GFR ( Amer) 90, Glucose 103 H, Calcium 9.2, Total Bilirubin 0.4, AST 27, ALT 19, Alkaline Phosphatase 104, Total Protein 6.7, Albumin 3.9, Globulin 2.8, Albumin/Globulin Ratio 1.4 04/25/24 17:10 04/25/24 17:10 Orders (Tests/Meds): ED MEDICATIONS Discontinued Medications Generic Name Dose Route Start Last Admin Trade Name Freq PRN Reason Stop Dose Admin Acetaminophen 1,000 mg 04/25/24 17:02 04/25/24 17:11 Acetaminophen 1,000mg/100ml Vial IV 04/25/24 17:03 1,000 mg ONCE ONE Administration Lactated Ringer's 1,000 mls @ 999 mls/hr 04/25/24 17:02 04/25/24 17:10 Lactated Ringer's 1000 Ml Bag IV 04/25/24 18:02 999 mls/hr .Q1H1M ONE Administration Iopamidol 75 ml 04/25/24 17:26 04/25/24 17:27 Iopamidol-370 (76%);100ml Bottle IV 04/25/24 17:27 75 ml ONCE ONE Administration Ketorolac Tromethamine 15 mg 04/25/24 17:02 04/25/24 17:10 Ketorolac 30mg/Ml Vial IV 04/25/24 17:03 15 mg ONCE ONE Administration Nitrofurantoin Macrocrystals 100 mg 04/25/24 18:36 04/25/24 18:47 Nitrofurantoin 100mg Capsule PO 04/25/24 18:37 100 mg ONCE ONE Administration Ondansetron HCl 4 mg 04/25/24 17:02 04/25/24 17:10 Ondansetron 4mg/2ml Vial IV 04/25/24 17:03 4 mg ONCE ONE Administration Sodium Chloride 10 ml 04/25/24 17:26 04/25/24 17:27 Sodium Chloride 0.9% 10ml Syr (Rad Only) IV 04/25/24 17:27 10 ml ONCE ONE Administration ORDERS Category Date Time Status CT abdomen pelvis w con Stat Cat Scan 04/25/24 17:02 Completed CBC w/Auto Diff [Complete Blood Count Auto Diff] Stat Lab 04/25/24 17:10 Completed CMP [Comprehensive Metabolic Panel] Stat Lab 04/25/24 17:10 Completed UA [Urinalysis and Microscopic] Stat Lab 04/25/24 16:08 Completed Medical Decision Narrative: In summary, this patient is a 53-year-old female presenting to the Emergency Department for evaluation of right lower quadrant abdominal pain, nausea, chills, and dysuria. Differential diagnoses considered include but are not limited to cystitis, pyelonephritis, ureterolithiasis, appendicitis, colitis, constipation. Ruling out the most morbid conditions drove assessment. On exam, the patient is resting comfortably in bed in no acute distress with reassuring vital signs on cardiac telemetry. She does have right lower quadrant tenderness but no rebound or guarding. Workup included CBC, CMP, urinalysis, and CT abdomen and pelvis with IV contrast. She was given a bolus of IV fluids as well as IV acetaminophen, Toradol, and Zofran for symptomatic improvement. I independently interpreted CT scan prior to the radiologist read and noted no obvious acute surgical pathology such as appendicitis. Please see their read for final interpretation. Labs were obtained that demonstrated no significant leukocytosis. Patient's urine is concerning for mild infection with leukocyte esterase and bacteria. Given that she is having abdominal pain and dysuria, will treat as UTI. She was given oral Macrobid here.. On reassessment, patient had good improvement after administration of as above. Given that exam is reassuring and workup is been reassuring as well, I feel that she is appropriate for discharge with supportive management and prescription for Macrobid to treat UTI. Strict return precautions were given as well as instructions for close outpatient follow-up. Critical Care Critical Care Time Critical Care Time: No
[2024-04-25 17:06] LABS: Microscopic, Urine URINE MICROSCOPIC (MICROSCOPIC)
[2024-04-25] MEDS: ONDANSETRON 4MG/2ML VIAL 4 MG IV (17:10)
[2024-04-25] MEDS: KETOROLAC 30MG/ML VIAL 15 MG IV (17:10)
[2024-04-25] MEDS: LACTATED RINGERS 1000ML 1,000 ML 999 ML IV (17:10)
[2024-04-25] MEDS: ACETAMINOPHEN 1,000MG/100ML VIAL 1000 MG IV (17:11)
[2024-04-25 17:12] LABS: Appearance,Urine CLEAR (Clear); Bilirubin,Urine Negative (Negative); Blood, Urine Negative (Negative); Color,Urine YELLOW (Yellow); Glucose,Urine (UA) Negative (Negative); Ketones,Urine Negative (Negative); Leukocyte Esterase,Urine TRACE (Negative); Nitrate,Urine Negative (Negative); Protein,Urine Negative (Negative)
[2024-04-25 17:16] LABS: Basophils % 0.8 % (0.1-2.0); Eosinophils # 0.1 K/mm3 (0.0-0.4); Eosinophils % 1.3 % (0.1-12.0); Hematocrit 42.6 % (37.0-47.0); Lymphocytes # 1.6 K/mm3 (0.7-4.5); Lymphocytes % 31.8 % (10-50); Mean Corpuscular HGB Conc 32.8 g/dL (31.8-35.4); Mean Corpuscular Hemoglobin 31.4 pg (27.0-31.2); Mean Corpuscular Volume 95.9 fl (81-99); Mean Platelet Volume 8.6 fl (7.4-10.4); Monocytes # 0.4 K/mm3 (0.1-1.0); Monocytes % 6.8 % (1.7-9.3); Neutrophils % 59.3 % (37.0-80.0); Platelet Count 212 K/mm3 (142-424); Red Blood Count 4.44 M/mm3 (4.20-5.40); Red Cell Distribution Width 13.7 % (11.5-17.5); White Blood Count 5.1 K/mm3 (4.8-10.8)
[2024-04-25 17:20] LABS: Chloride 107 mmol/L (98-107)
[2024-04-25 17:21] LABS: Potassium 4.5 mmoL/L (3.5-5.1); Sodium 138 mmol/L (136-145)
[2024-04-25 17:21] LABS: Bacteria,Urine Trace /lpf; WBC,Urine Occasional #/hpf (0-3)
--- NOTE | 2024-04-25 17:22 | PC.NURSE ---
PT TO CT
[2024-04-25 17:23] LABS: Alanine Aminotransferase 19 U/L (12-78); Alkaline Phosphatase 104 U/L (38-126); Aspartate Amino Transferase 27 U/L (14-36); Bilirubin,Total 0.4 mg/dl (0.2-1.3); Blood Urea Nitrogen 15 mg/dl (7-17); Creatinine Clearance Estimated 93 mL/min (50-200); Estimated Glomerular Filt Rate 74 ml/min (>60); GFR (African American) 90 ML/MIN (>60)
[2024-04-25 17:24] LABS: Albumin Level 3.9 g/dl (3.5-5.0); Albumin/Globulin Ratio 1.4 (1.1-1.8); Anion Gap 4.5 mEq/L (5-15); Calcium 9.2 mg/dl (8.4-10.2); Carbon Dioxide 31 mmol/L (22.0-30.0); Globulin 2.8 g/dL (1.3-3.2); Glucose 103 mg/dl (74-100); Total Protein,Serum 6.7 g/dl (6.3-8.2)
[2024-04-25] MEDS: IOPAMIDOL-370 (76%);100ML BOTTLE 75 ML IV (17:27)
[2024-04-25] MEDS: SODIUM CHLORIDE 0.9% 10ML SYR (RAD ONLY) 10 ML IV (17:27)
[2024-04-25 17:31] VITALS: BP 117/61
[2024-04-25] MEDS: NITROFURANTOIN 100MG CAPSULE 100 MG PO (18:47)
[2024-04-25 18:50] VITALS: BP 116/68; PULSE 60; RESP 16; TEMP 36.6; O2SAT 98
== END 2024-04-25 18:52 | disposition home or self-care (01) ==
LOC: UTC 16:52 → ER 16:53
PROVIDERS: Emergency Provider Emergency Medicine; PCP Nurse Practitioner Family
DX: R10.31 Right lower quadrant pain (principal); N39.0 Urinary tract infection, site not specified; M54.59 Other low back pain
CPT/HCPCS: 74177; 80053; 81001; 85025; 96361; 96374; 96375; 99284; J0131; J1885; J2405; J7120; Q9967

== ENCOUNTER 2024-10-05 05:50 | Emergency (ER) | payer OTHER, SELFPAY ==
[2024-10-05 05:52] VITALS: BP 138/67; PULSE 80; RESP 22; TEMP 36.8; O2SAT 98; BMI 29.0
--- NOTE | 2024-10-05 06:06 | [facility].EDGENADL ---
Discharge Plan Disposition Patient Disposition: Home, Self-Care Condition: Good Prescriptions Prescriptions: No Action cyclobenzaprine 10 mg tablet 10 mg PO DAILY prednisone 20 mg tablet 20 mg PO DAILY pregabalin 75 mg capsule 75 mg PO DAILY nitrofurantoin monohyd/m-cryst [Macrobid] 100 mg capsule 100 mg PO BID 5 Days Qty: 10 0RF Rx Instructions: must administer with a meal/food ondansetron 4 mg tablet,disintegrating 4 mg PO Q8H PRN (Reason: nausea and vomiting) 4 Days Qty: 12 0RF phenazopyridine [Pyridium] 200 mg tablet 200 mg PO Q8H PRN (Reason: pain) Qty: 6 0RF Referrals Follow up/Referrals: Dora Morrison [Primary Care Provider] - See instructions Activity Restrictions/Add. Instructions Additional Instructions/Restrictions: Please follow-up with your primary care provider. Please return to the emergency department if you develop any new or worsening symptoms or become concerned for your health. Clinical Impressions Clinical Impression: Influenza, Acute dyspnea Print Language Print Language: Senegalese Discharge ED Provider: Stevan Oglesby General Adult HPI General Chief complaint: Shortness of Breath/Dyspnea Stated complaint: SOA, pos for Flu A Time Seen by Provider: 10/05/24 06:06 Mode of Arrival: Ambulatory Source of Information: Patient Limitations: No Limitations Description of Symptoms (Recalled from ER Triage Doc. by RN): Patient presents to ED with SOA. Patient states she tested positive for Flu on Saturday this week. Patient was given tamiflu and a albuterol inhaler. Patient reports using inhaler last night with no relief. Patient is 98% on RA. History of Present Illness HPI narrative: 53-year-old female with known flu infection, given Tamiflu and albuterol inhaler presents for shortness of breath. She feels like she is having trouble taking a deep breath. She denies any chest pain. She reports that she feels rundown and generally weak as well. She is on day 5 or 6 of illness. Related Data Home Medications ?Medication ?Instructions ?Recorded ?Confirmed cyclobenzaprine 10 mg tablet 10 mg PO DAILY 04/25/24 04/25/24 prednisone 20 mg tablet 20 mg PO DAILY 04/25/24 04/25/24 pregabalin 75 mg capsule 75 mg PO DAILY 04/25/24 04/25/24 Previous Rx's ?Medication ?Instructions ?Recorded nitrofurantoin 100 mg PO BID 5 days #10 caps 04/25/24 monohydrate/macrocrystals 100 mg capsule (Macrobid) ondansetron 4 mg disintegrating 4 mg PO Q8H PRN nausea and 04/25/24 tablet vomiting 4 days #12 tabs phenazopyridine 200 mg tablet 200 mg PO Q8H PRN pain 6 doses #6 04/25/24 (Pyridium) tabs Allergies Allergy/AdvReac Type Severity Reaction Status Date / Time codeine Allergy Verified 07/19/23 08:33 hydrocodone Allergy Verified 07/19/23 08:33 promethazine (From Phenergan) Allergy Verified 07/19/23 08:33 Sulfa (Sulfonamide Allergy Verified 07/19/23 08:33 Antibiotics) sulfate ion Allergy Verified 07/19/23 08:33 PFS PFS Disclaimer: The information contained in this section may have been updated after the patient was seen, as this information can be updated by other users. 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 Urinary tract infection symptoms Hx of non anemic vitamin B12 deficiency Mood changes Loss of energy Fatigue Depression Anemia Anxiety Surgical History History of total abdominal hysterectomy History of neck surgery Social History Smoking Status: Never smoker alcohol intake: never current occupational status: employed Travel in the last 8 weeks: None household members: spouse housing: house current occupational exposures/hazards: Yes Have you lived/traveled outside [place] in past 30 days?: No Contact w/someone who lives/traveled outside [place] past 30 days?: No Exposure to someone with infectious disease in past 14 days?: Yes Do you have a fever (greater than 100.4 F or 38 C)?: No Have you tested positive for COVID-19: No Exposed to someone with COVID-19 in past 14 days?: No Do you have a sore throat?: No Do you have a cough?: Yes Do you have any weakness?: No Do you have any diarrhea?: No Are you experiencing any unusual bleeding?: No Do you have any muscle aches/pain?: No Do you have any abdominal pain?: No Are you experiencing loss of taste or smell?: No ROS Obtained: Yes All systems reviewed & no additional complaints except as documented Physical Exam General General appearance: alert and in no apparent distress Head Head exam: atraumatic and normocephalic Eye Eye exam: Present normal appearance, PERRL and EOMI ENT ENT exam: Present normal oropharynx and normal external ear exam Neck Neck exam: Present normal inspection and full ROM Chest Chest inspection: Present normal inspection and symmetric chest wall rise; Absent tenderness Respiratory Respiratory exam: Present normal lung sounds bilaterally; Absent respiratory distress Cardiovascular Cardiovascular exam: Present regular rate and normal rhythm Abdominal Exam Abdominal exam: Present soft; Absent distention, tenderness or guarding Extremities Exam Extremities exam: Present normal inspection; Absent edema or joint swelling Back Exam Back exam: Present normal inspection; Absent tenderness Neurological Exam Neurological exam: Present alert and oriented X3; Absent motor sensory deficit Psychiatric Psychiatric exam: Present normal affect and normal mood Skin Skin exam: Present warm, dry and normal color Lymphatic Lymphatic Findings: no adenopathy Medical Decision Making Medical Records Medical records reviewed: Yes I reviewed the patient's medical records. Screening: Per USPSTF and CDC recommendations, given the prevalence of disease in our region, it is our hospital?s policy to screen for HIV and viral Hepatitis for all patients aged 18 and over and those with ongoing risk factors. Arley Inquiry Pt receiving controlled substance: No Arley was queried for this patient: No Vital Signs: 10/05/24 05:52 10/05/24 06:19 Temperature 98.3 F 97.9 F Temperature Source Oral Oral Pulse Rate 64 Pulse Rate [Right Apical] 80 Respiratory Rate 22 16 Blood Pressure 113/71 Blood Pressure [Right Arm] 138/67 Blood Pressure Mean [Right Arm] 90 Blood Pressure Source Automatic Cuff Blood Pressure Source [Right Arm] Automatic Cuff Blood Pressure Position Supine Blood Pressure Position [Right Arm] Supine 02 Sat by Pulse Oximetry 98 Oxygen Delivery Method Room Air Room Air Lab Data Lab results reviewed: Yes I reviewed the patient's lab results. Medical Decision Narrative: 53-year-old female on day 5 of illness with the flu presents for persistent symptoms. History was obtained via interactive discussion with patient. On arrival, patient is [afebrile, hemodynamically stable, satting appropriately, alert, oriented x4, GCS 15], moving all extremities spontaneously. Full physical exam performed and significant for clear lungs bilaterally, clear oropharynx, moist mucous membranes, clear TMs bilaterally, satting 100% on room air. Differential includes but is not limited to flu infection, secondary pneumonia, concomitant URI. Labs and imaging was considered, but deemed unnecessary due to history and exam. Patient has clear lungs on exam, has not had any productive cough and is not febrile. Given this, low concern for secondary pneumonia at this point. Given patient history, exam and workup, patient's presentation most likely represents persistent influenza infection. She was discharged in stable condition with return precautions. Procedures Risk/Benefits of Procedure(s) Were Explained: Yes Critical Care Critical Care Time Critical Care Time: No
[2024-10-05 06:19] VITALS: BP 113/71; PULSE 64; RESP 16; TEMP 36.6; O2SAT 98
--- NOTE | 2024-10-05 06:20 | PC.NURSE ---
walked patient around nurses states x2, O2 stayed at 96. informed
== END 2024-10-05 06:22 | disposition home or self-care (01) ==
PROVIDERS: Emergency Provider Emergency Medicine; PCP Nurse Practitioner Family
DX: J11.1 Influenza due to unidentified influenza virus with other respiratory manifestations (principal); R06.00 Dyspnea, unspecified; R06.02 Shortness of breath; R53.1 Weakness
CPT/HCPCS: 99282